=== PATIENT | male | born 1945 | race Caucasian/White ===

== ENCOUNTER 2017-04-05 05:58 | Inpatient (IN) | payer OTHER ==
[2017-04-05] VITALS (26 sets, daily range): BP systolic 97–139; BP diastolic 54–75; PULSE 55–64; RESP 12–22; TEMP 97.8; Ht 188 cm; Wt 74.0 kg
[~2017-04-05] VITALS: Ht 188 cm; Wt 74.0 kg
[2017-04-05] MEDS ORDERED: ACETAMINOPHEN 325 MG TAB PO ONE (06:30)
--- NOTE | 2017-04-05 07:36 | RADRPT ---
PROCEDURE: XR bilateral elbows CLINICAL INDICATION: Bilateral elbow pain TECHNIQUE: 3 views of the right elbow and 3 views of the left elbow performed. COMPARISON: None. FINDINGS: Right elbow: There is no acute fracture. Alignment is normal. Joint spaces are preserved. There is no significant joint effusion. There is mild posterior soft tissue swelling over the olecr anon. Left elbow: There is no acute fracture. Alignment is normal. Joint spaces are preserved. There is no significant joint effusion. There is mild posterior soft tissue swelling over the olecr anon. IMPRESSION: 1. No radiographic evidence of acute osseous abnormality or joint effusion of either elbow. 2. Both elbows demonstrate mild posterior soft tissue swelling of the olecranon. RPTAT: UU .Kumar Jacob MD, Date Time Electronically viewed and signed by .Kumar Jacob MD, on 04/05/2017 07:36 .K/
--- NOTE | 2017-04-05 07:38 | RADRPT ---
PROCEDURE: XR left Hip. CLINICAL INDICATION: Left hip pain TECHNIQUE: AP and frog lateral views of the left hip were performed. COMPARISON: None. FINDINGS: There is no radiographic evidence of acute fracture. There is severe left hip osteoarthrosis with n ear bone on bone articulation and severe joint space loss superiorly along with small degenerative s ubchondral cyst in the acetabular roof and marginal osteophyte formation. There are vascular calcif ications. IMPRESSION: 1. No radiographic evidence of acute osseous abnormality. 2. Severe left hip osteoarthrosis as above. RPTAT: UU .Kumar Jacob MD, MD Date Time Electronically viewed and signed by .Kumar Jacob MD, on 04/05/2017 07:37 .K/
--- NOTE | 2017-04-05 07:39 | RADRPT ---
PROCEDURE: CT Brain without contrast. CLINICAL INDICATION: fall TECHNIQUE: A CT of the brain was performed on a GE Ungallipeed 64-slice CT scanner utilizing axial imaging from the skull base through the vertex without IV contrast. Multiplanar reformatted images were made. Images were reviewed on a PACS workstation. The CTDIvol is 42.3 mGy and the DLP is 900. 28 mGycm. COMPARISON: None FINDINGS: In the right anterior temporal pole region, there is a crescentic extra-axial hyperdensity measuring approximate 3 mm in thickness consistent with a small right anterior temporal subdural hematoma or epidural hematoma. There is no midline shift or significant mass effect. There is moderate diffuse cerebral volume loss, likely age-related. Subtle low attenuation in the bilateral periventricular s ubcortical cerebral white matter is nonspecific, but most likely represents sequelae of chronic smal l vessel ischemic white matter disease. There reynolds white matter differentiation appears well-preserv ed. There is calcification along the tentorium and falx. The orbits are unremarkable. The visualized paranasal sinuses unremarkable. The mastoid air cells a re clear. There is a minimally depressed fracture of the right zygomatic arch. IMPRESSION: 1. Small right anterior temporal subdural or epidural hematoma measuring 3 mm in thickness. 2. Minimally depressed fracture of the right zygoma. 3. Above critical findings were discussed with Dr. Hutchins of [facility] ED via juan ramon ne at 07:37 on 04/05/2017. RPTAT: PP Physician Zheng Date Time Electronically viewed and signed by Physician Zheng on 04/05/2017 07:39 MARILU/
--- NOTE | 2017-04-05 07:53 | RADRPT ---
PROCEDURE: XR Chest. CLINICAL INDICATION: Shortness of breath. Headache. TECHNIQUE: Single frontal view. COMPARISON: None. FINDINGS: The lungs are clear. The heart size is normal. There is no pleural effusion. There is no pneumothorax. IMPRESSION: 1. Normal chest radiograph. RPTAT: QQ .Ramu Alfonso MD, MD Date Time Electronically viewed and signed by .Ramu Alfonso MD, MD on 04/05/2017 07:53 .R/
--- NOTE | 2017-04-05 07:58 | RADRPT ---
PROCEDURE: CT cervical spine without contrast. CLINICAL INDICATION: Trauma, fall, neck pain TECHNIQUE: CT of the cervical spine without contrast was performed on a multidetector CT scanner, w ith multiplanar reformats. One or more of the following dose reduction techniques were used: Automa alejo exposure control, adjustment in mA and / or kV according to patient size, use of iterative recon structive technique. CTDIvol = 22 mGy and DLP = 617 mGy-cm. COMPARISON: None available. FINDINGS: Generalized osteopenia. No cervical spine fracture or dislocation is identified. There is straight ening of the lordosis of the cervical spine. There is mild grade 1 anterolisthesis at C2-3 and C7-T 1, trace retrolisthesis at C3-4 and C5-6. Vertebral bodies are grossly maintained in height. Ther e are anterior atlantoaxial joint degenerative changes with soft tissue thickening posterior to the dens which may reflect degenerative pannus measuring up to 5 mm without significant central canal na rrowing, and anterior osteophytes at C3-4 through C6-7. There is severe disk space narrowing with e ndplate degenerative changes at C3-4 through C6-7. C2-3: There is a posterior disk/osteophyte and ligamentum flavum hypertrophy. There is mild central canal stenosis. There is facet arthropathy with mild left foraminal narrowing. C3-4: There is a posterior disk/osteophyte with mild to moderate central canal stenosis. There are uncovertebral osteophytes and facet arthropathy with moderate to severe right and severe left forami nal narrowing. C4-5: There is a posterior disk/osteophyte with mild central canal stenosis. There are uncovertebra l osteophytes and facet arthropathy with mild right foraminal narrowing. C5-6: There is a posterior disk/osteophyte without central canal stenosis identified. There are unc overtebral osteophytes and facet arthropathy with mild left foraminal narrowing. C6-7: There is a posterior disk/osteophyte without central canal stenosis identified. There are un covertebral osteophytes and facet arthropathy without foraminal narrowing identified. C7-T1: No disk bulge or herniation is seen. There is facet arthropathy. There is no central canal stenosis or foraminal narrowing. IMPRESSION: 1. No cervical spine fracture/dislocation identified. 2. Advanced cervical spondylosis/degenerative enthesopathy, with grade 1 anterolisthesis at C2-3, C 7-T1, trace retrolisthesis at C3-4, C5-6. 3. Mild to moderate central canal stenosis at C3-4, mild central canal stenosis and C2-3 and C4-5. 4. Multilevel foraminal narrowing detailed above. 5. Osteopenia. RPTAT: VV .Sebastián Acuna MD, Date Time Electronically viewed and signed by .Sebastián Acuna MD, on 04/05/2017 07:58 .O/
[2017-04-05] MEDS ORDERED: CARB100T2 PO (08:51)
[2017-04-05] MEDS ORDERED: HALO10TA PO (08:52)
[2017-04-05] MEDS ORDERED: FER325 PO (08:53)
[2017-04-05] MEDS ORDERED: QUET100T PO (08:54)
[2017-04-05] MEDS ORDERED: DOCU-144 PO (08:55)
[2017-04-05] MEDS ORDERED: QUET50TA16 PO (08:55)
[2017-04-05] MEDS ORDERED: TIOT18CA INHALATION (08:55)
[2017-04-05 09:04] LABS: BASOPHILS % 0.2 % (0.0-2.0); HEMATOCRIT 38.7 % (42.0-52.0); HEMOGLOBIN 13.2 g/dl (14.0-18.0); LYMPHOCYTES # 0.7 10^3/ul (0.8-2.9); LYMPHOCYTES % 5.4 % (15.0-51.0); MEAN CORPUSCULAR HEMOGLOBIN 29.7 pg (29.0-33.0); MEAN CORPUSCULAR HGB CONC 34.1 g/dl (32.0-37.0); MEAN CORPUSCULAR VOLUME 87.2 fl (82.0-101.0); MEAN PLATELET VOLUME 8.9 fl (7.4-10.4); MONOCYTE # 1.2 10^3/ul (0.3-0.9); MONOCYTES % 9.5 % (0.0-11.0); NEUTROPHIL # 10.2 10^3/ul (1.6-7.5); NEUTROPHILS % 84.6 % (39.0-77.0); PLATELET COUNT 347 10^3/UL (140-415); RED BLOOD COUNT 4.44 10^6/ul (4.70-6.10); RED CELL DISTRIBUTION WIDTH 13.3 % (11.5-14.5); WHITE BLOOD COUNT 12.1 10^3/ul (4.8-10.8)
--- NOTE | 2017-04-05 09:14 | ERA ---
ER Documentation Chief Complaint Date/Time DATE: 04/05/17 TIME: 09:10 Chief Complaint LEO [id number],from assisted living,ambulates w/ walker,weakness,rt elbow pain HPI Patient is a 71-year-old male with dementia who presents after a fall. Please note the history and physical exam as the patient was brought in with dementia. He fell and hit the back of his head while he was then assisted living facility. He has right elbow pain as well. He was being assisted to the bathroom by a person who works at the facility. He is not on blood thinning medications. Upon review of old medical records this is the patient's first visit to the emergency department. ROS All systems reviewed and are negative except as per history of present illness. Medications Home Meds Reported Medications Tiotropium [place]* (Spiriva*) 18 Mcg Cap.w.dev, 1 CAP INHALATION DAILY, #30 CAP 04/05/17 Docusate Sodium* (Colace*) 100 Mg Capsule, 100 MG PO BID, #60 CAP 04/05/17 Quetiapine Fumarate* (Seroquel*) 50 Mg Tablet, 50 MG PO QAM, TAB 04/05/17 Quetiapine Fumarate* (Seroquel*) 100 Mg Tablet, 100 MG PO QHS, #30 TAB 04/05/17 Ferrous Sulfate* (Ferrous Sulfate*) 325 Mg Tabec, 325 MG PO MONWEDFRI, TAB 04/05/17 Haloperidol* (Haloperidol*) 10 Mg Tablet, 5 MG PO Q6 Y for AGITATION/ANXIETY, TAB 04/05/17 Carbamazepine* (Carbamazepine*) 100 Mg Tab.chew, 300 MG PO BID, #60 TAB.CHEW 04/05/17 Allergies Allergies: Coded Allergies: No Known Allergy (Unverified , 04/05/17) PMhx/Soc Medical and Surgical Hx: Unable to obtain History of Surgery: Yes (PT STATES APPENDIX AGE 8) Hx Neurological Disorder: Yes (PT CURRENTLY EXHIBITS SUB/EPIDURAL HEMATOMA) Hx Respiratory Disorders: No Hx Cardiac Disorders: No Hx Psychiatric Problems: Yes (PT RX SEROQUEL AND HALDOL) Hx Miscellaneous Medical Probl: No Hx Alcohol Use: Yes ("HAS NOT HAD A DRINK IN YEARS") Hx Substance Use: No Hx Tobacco Use: Yes ("QUIT YEARS AGO") Smoking Status: Former smoker FmHx Unable to obtain Physical Exam Vitals Vital Signs Date Time Temp Pulse Resp B/P Pulse Ox O2 Delivery O2 Flow Rate FiO2 04/05/17 06:30 97.8 64 16 114/72 98 Room Air 04/05/17 06:02 97.6 86 18 146/73 98 Physical Exam Const: No acute distress Head: Bruising Eyes: Normal Conjunctiva ENT: Normal External Ears, Nose and Mouth. Neck: Full range of motion..~ No meningismus. Resp: Clear to auscultation bilaterally Cardio: Regular rate and rhythm, no murmurs Abd: Soft, non tender, non distended. Normal bowel sounds Skin: Bruising of the right elbow and skull Back: No midline or flank tenderness Ext: Pain with range of motion of the bilateral elbows Neur: Awake but demented at baseline Result Diagram: 04/05/17 0850 Results 24 hrs Laboratory Tests Test 04/05/17 08:50 White Blood Count 12.110^3/ul Red Blood Count 4.4410^6/ul Hemoglobin 13.2g/dl Hematocrit 38.7% Mean Corpuscular Volume 87.2fl Mean Corpuscular Hemoglobin 29.7pg Mean Corpuscular Hemoglobin Concent 34.1g/dl Red Cell Distribution Width 13.3% Platelet Count 08036^3/UL Mean Platelet Volume 8.9fl Neutrophils % 84.6% Lymphocytes % 5.4% Monocytes % 9.5% Eosinophils % 0.0% Basophils % 0.2% Nucleated Red Blood Cells % 0.0/100WBC Neutrophils # 10.210^3/ul Lymphocytes # 0.710^3/ul Monocytes # 1.210^3/ul Eosinophils # 0.010^3/ul Basophils # 0.010^3/ul Nucleated Red Blood Cells # 0.010^3/ul Current Medications Medications (Trade) Dose Ordered Sig/Janis Route PRN Reason Start Time Stop Time Status Last Admin Dose Admin Acetaminophen (Tylenol Tab) 650 mg ONCE ONCE PO 04/05/17 06:30 04/05/17 06:31 DC 04/05/17 07:24 Procedures/MDM CT brain shows 3 mm subdural versus epidural hematoma to the right side. CT cervical spine negative for fracture per radiology. Bilateral elbow x-ray negative per radiology. X-ray left hip negative for fracture per radiology. EKG read by me: Rate/Rhythm: Regular rate and rhythm at a normal rate Intervals: Normal Impression: No evidence of ischemia or arrhythmia Chest x-ray pending at this time. Patient is a 71-year-old male with dementia who presents with a fall. He has a 3 mm subdural hematoma. I spoke with Dr. Rogers who is the neurosurgeon concrete bucket loader. Dr. Olson will see the patient and recommends a repeat CT scan of the brain within 6 hours. I spoke with Dr. Briscoe from the panel team who will admit the patient to the ICU. The patient has [employer] insurance and therefore will be admitted to the panel team. The patient has laboratory studies pending at this time. Critical Care: Time: 35 minutes excluding all billable procedures. Treatments/Evaluations: Close monitoring and treatment of unstable vital signs, cardiorespiratory, and neurologic status, while maintaining tight balance of fluid, respiratory, and cardiac interventions. Departure Diagnosis: Primary Impression: SDH (subdural hematoma) Additional Impression: Fall Qualified Code: W19.XXXA - Fall, initial encounter Condition: Critical CORKY HAGER MD Apr 05, 2017 09:14
[2017-04-05 09:33] LABS: INR 0.98
[2017-04-05 09:34] LABS: CALCIUM 9.6 mg/dl (8.4-10.2); CREATININE 1.16 mg/dl (0.61-1.24); PARTIAL THROMBOPLASTIN TIME 25.9 Sec (25.0-35.0); POTASSIUM 4.5 mmol/L (3.5-5.1)
[2017-04-05 09:48] LABS: TROPONIN-I 0.46 ng/ml (0.00-0.12)
[2017-04-05] MEDS ORDERED: ONDANSETRON 4 MG INJ IV PRN (10:00)
[2017-04-05] MEDS ORDERED: DOCUSATE SODIUM 100 MG CAP PO PRN (10:00)
[2017-04-05] MEDS ORDERED: morphine 2 MG INJ IV PRN (10:00)
[2017-04-05] MEDS ORDERED: ACETAMINOPHEN 650MG/20.3ML CUP PO PRN (10:00)
[2017-04-05] MEDS ORDERED: ALBUTEROL/IPRATROPIUM (NEB) 3 ML AMP NEB PRN (10:00)
[2017-04-05] MEDS ORDERED: BISACODYL (EC) 5 MG TAB PO PRN (10:00)
[2017-04-05] MEDS ORDERED: ACETAMINOPHEN 650 MG SUPP PR PRN (10:00)
[2017-04-05 10:20] LABS: AADO2 Arterial 24.5 mmHg (7.0-24.0); Allen Test ACCEPTAB; Arterial Base Excess -0.5 mmol/L (-3.0-3); Arterial COHb 0.3 % (0.0-3.0); Arterial Fraction of Oxyhgb 95.4 % (93.0-99.0); Arterial HCO3 23.1 mmol/L (22.0-26.0); Arterial MetHb 0.4 % (0.0-1.5); MODE ROOM AIR
[2017-04-05] MEDS ORDERED: hydrALAzine 20 MG INJ IV PRN (10:30)
[2017-04-05] MEDS: SOD CHLORIDE 0.9% 1,000 ML IV SCH ×2 (11:26→23:56)
--- NOTE | 2017-04-05 11:35 | HP ---
Date/Time of Note Date/Time of Note DATE: 04/05/17 TIME: 11:35 Assessment/Plan VTE Prophylaxis VTE Prophylaxis Intervention: contraindicated (SDH), SCD's Assessment/Plan Assessment/Plan This is a 71-year-old male with a known history of dementia, who was brought by EMS from assisted living place following mechanical fall, hitting on head. 1. Mechanical fall with subdural hemorrhage on CT findings. GCS 14. 04/05/2017. CT head, noncontrast. Small right anterior temporal subdural or epidural hematoma measuring 3 mm in thickness. Minimally depressed fracture of the right zygoma. -Admit to ICU, neurosurgery consult has been called from the emergency room. -Neurochecks every hour. -Keppra for seizure precaution. -We will repeat CT within 6 hours to evaluate for resolution of hemorrhage per neurosurgery. 2.Elevated troponin. Rule out ACS. -Patient has definite contraindication for anticoagulation secondary to SDH. -Cardiology consult for further management. -Obtain 12-lead EKG, echocardiogram. -Antihypertensive prn. 3. Leukocytosis, likely reactive. Will monitor. 4. Dementia. -Resume home medications. DVT prophylaxis: Pharmacological agents are contraindicated at this time. Provide SCDs. PUD prophylaxis: Pepcid. Plan: Patient will be monitored in the ICU with regular neurovascular checks. Patient will be seen by neurosurgery and cardiology service. Patient will be kept n.p.o. until neurosurgery evaluate patient. We will follow up on repeat CT findings. We will also obtain fasting lipid panel, A1c, TSH in the morning. Rest of the management depend on clinical course, further studies and input from hr business partner consultant. Approximately 60 minutes was spent on this history and physical. Case discussed with Dr. Luis Felipe WRIGHT/LANDEN Admit Date/Time Admit Date/Time Apr 05, 2017 at 08:17 Hx of Present Illness This is a 71-year-old male with a past medical history of dementia, appendectomy , who was brought to the emergency room from assisted living facility after fell and hit his head while ambulating with walker. Unfortunately, there is no patient is unable to provide much history due to his dementia status. However, it appears that patient is not on any blood thinners. Patient had a CT brain without contrast which showed small right anterior temporal subdural or epidural hematoma measuring 3 mm in thickness, Minimally depressed fracture of the right zygoma. Initial labs showed elevated troponin 0.460, CK 9151, WBC 12,100, hemoglobin 13.2, hematocrit 38.7. Otherwise initial labs unremarkable. A 12-lead EKG showed normal sinus rhythm without any evidence of ischemia or arrhythmia. Chest x-ray was negative for any acute cardiopulmonary disease. Patient also had negative elbow and hip x-ray. Vital signs: temperature 97.6 pulse rate 86, respiratory rate 18 blood pressure 146/73 , oxygen saturation 98% on room air. Patient was given Tylenol 650 mg in the emergency room. A neurosurgery consult was called from the emergency room and a clinical decision was made to admit in the ICU for further evaluation. ROS Patient has a baseline demented status. Therefore review of system was limited. Please see HPI. PMH/Family/Social Past Medical History See HPI Past Surgical History See HPI Social History Unable to obtain. Smoking Status: Former smoker Exam/Review of Systems Vital Signs Vitals Vital Signs Date Time Temp Pulse Resp B/P Pulse Ox O2 Delivery O2 Flow Rate FiO2 04/05/17 09:30 64 04/05/17 09:11 97.8 20 124/72 99 Room Air Exam Exam General: Awake, not in any acute distress . HEENT: Ecchymosis on right forehead, chin area. Normocephalic, Atraumatic, No laceration or hematoma; Eyes: PEERL, Conjunctiva clear, Anicteric sclera Neck: Supple without any lymphadenopathy, nontender, no JVD, no carotid bruits, trachea midline, no thyromegaly Cardiac: S1, S2 auscultated, regular rhythm and rate, no mumurs or gallop Pulmonary: Normal respiratory effort. Chest clear to auscultation bilaterally, no adventitious breath sounds GI: Abdomen normal to inspection. Soft, non tender, non- distended, no masses, no rebound tenderness or guarding. Bowel sounds active on all four quadrants Genitourinary: Deferred Extremities: No cyanosis, clubbing, or edema. Pulses [2+] bilaterally. Full ROM on all four extremities. No focal weakness appreciated. Neurologic: Dementia +. Confused on and off. Awake and follows commands. Disoriented to time, place and situation. Skin: Clean,dry, and intact. No ecchymosis, no rashes, or lesions Labs Result Diagram: 04/05/17 0850 04/05/17 0850 Medications Medications Current Medications Sodium Chloride (NS) 1,000 ml @ 75 mls/hr [id number] IV Last administered on 04/05t 11:26; Admin Dose 75 MLS/HR; Start 04/05/17 at 09:48 Ondansetron HCl (Zofran Inj) 4 mg Q6H PRN IV NAUSEA AND/OR VOMITING; Start at 10:00 Acetaminophen (Tylenol Liquid) 650 mg Q6H PRN PO PAIN LEVEL 1-3 OR FEVER; Start 04/05/17 at 10:00 Acetaminophen (Tylenol Supp) 650 mg Q4H PRN WI PAIN LEVEL 1-3 OR FEVER; Start 04/05/17 at 10:00 Morphine Sulfate (morphine) 2 mg Q4H PRN IV PAIN LEVEL 7-10; Start 04/05/17 at 10:00 Docusate Sodium (Colace) 100 mg Q12H PRN PO CONSTIPATION; Start 04/05/17 at 10: 00 Bisacodyl (Dulcolax) 5 mg DAILY PRN PO CONSTIPATION; Start 04/05/17 at 10:00 Famotidine 20 mg 20 mg Q12 IV ; Start 04/05/17 at 21:00 Levetiracetam (Keppra 500 Mg/ 100ml (Pmx)) 100 ml @ 400 mls/hr Q12 IVPB ; Start 04/05/17 at 11:00 Hydralazine HCl (Apresoline) 10 mg Q6H PRN IV SBP>160; Start 04/05/17 at 10:30 BRIAN CARD NP Apr 05, 2017 11:35
[2017-04-05] MEDS: LEVETIRACETAM 500 MG (PMX) 100 ML IVPB SCH ×2 (11:36→20:21)
[2017-04-05 12:29] LABS: ADD UMIC YES; UR ASCORBIC ACID NEGATIVE (NEGATIVE); UR BILIRUBIN (Dip) NEGATIVE (NEGATIVE); UR BLOOD (Dip) 1+ mg/dL (NEGATIVE); UR CLARITY CLEAR (CLEAR); UR COLOR YELLOW (YELLOW); UR GLUCOSE (Dip) NEGATIVE (NEGATIVE); UR KETONES (Dip) NEGATIVE (NEGATIVE); UR LEUKOCYTE ESTERASE (Dip) NEGATIVE Leu/ul (NEGATIVE); UR NITRITE (Dip) NEGATIVE (NEGATIVE); UR RBC 4 /HPF (0-5); UR SPECIFIC GRAVITY (Dip) 1.017 (1.003-1.030); UR TOTAL PROTEIN (Dip) NEGATIVE (NEGATIVE); UR UROBILINOGEN (Dip) NEGATIVE (NEGATIVE)
[2017-04-05 13:02] LABS: TROPONIN-I 0.466 ng/ml (0.00-0.12)
--- NOTE | 2017-04-05 14:21 | RADRPT ---
PROCEDURE: Noncontrast CT Head. CLINICAL INDICATION: Trauma. Subdural hematoma. TECHNIQUE: Noncontrast CT of the head was obtained. The administered radiation dose was CTDI vol = 44.03 mGy, DLP = 630.20 mGy-cm. One or more of the following dose reduction techniques were used: Au tomated exposure control, Adjustment of the mA and/or kV according to patient size, or Use of iterat ilsa reconstruction technique. COMPARISON: Noncontrast CT of the head from April 05, 2017 at 07:00 a.m. FINDINGS: There is moderate generalized cerebral volume loss. There is mild cerebellar volume loss. There is mild to moderate periventricular hypoattenuation suggesting chronic microvascular ischemic changes. There are mild vascular calcifications within the intracranial carotid arteries. There is no loss of reynolds-white differentiation to suggest acute territorial infarction. No definite intracranial hemorrhage is identified. There is no definite extra-axial hemorrhage with in the right temporal region. There is no mass effect. No midline shift is identified. The orbits are within normal limits. The paranasal sinuses are well aerated. No destructive osseous lesion is identified. Previous noted mildly displaced right zygomatic arch fr acture is not imaged. IMPRESSION: 1. No evidence of intracranial hemorrhage. 2. Moderate cerebral and mild cerebellar volume loss. 3. Mild to moderate chronic microvascular ischemic changes. 4. Previous noted mildly displaced right zygomatic arch fracture is not imaged. Further findings as detailed above. RPTAT: PP .Good Alexander MD, MD Date Time Electronically viewed and signed by .Good Alexander MD, on 04/05/2017 14:21 .F/
--- NOTE | 2017-04-05 15:07 | RADRPT ---
Echocardiogram Report Patient Name: VIDAL ROA Gender: Male Date: 1945 Study Date: 05-Apr-2017 Revenue Cycle Analyst: Mateus Coreas RDCS Location: 118 Ref. Physician: BRIAN CARD Quality: Adequate Procedures: Transthoracic echocardiogram with complete 2D, M-Mode, and doppler examination. Indications: cardiac risk stratification. 2D/M Mode Doppler Measurement Value Normal Ranges Measurement Value Normal Ranges LVIDd 2D 4.5 3.5 - 5.6 cm AV Peak You 0.9 m/sec LVIDs 2D 2.6 2.1 - 4.1 cm AV Peak PG 3.3 mmHg LVPWd 2D 1.1 0.6 - 1.1 cm LVOT Peak You 0.9 m/sec IVSd 2D 1.0 0.6 - 1.1 cm LVOT Peak PG 3.3 mmHg AoR Diam 2D 3.2 2.0 - 3.7 cm MV E Peak You 0.7 m/sec EDV 2D 94.5 cm3 MV A Peak You 0.9 m/sec ESV 2D 18.4 cm3 MV E/A 0.8 LA Dimen 2D 3.8 2.3 - 4.0 cm MV Decel Time 233 msec MV Decel [place] 3 MV E/A 0.8 TR Peak You 1.7 m/sec TR Peak PG 10.9 mmHg RVSP 14.0 mmHg Findings Left Ventricle: Normal left ventricular systolic function. Normal left ventricular cavity size. Normal left ventricular wall thickness. Ejection fraction is visually estimated at 65 %. Tissue Doppler/Mitral Doppler indices are consistent with impaired relaxation (Stage I diastolic dysfunction). Right Ventricle: Normal right ventricular size. Normal right ventricular systolic function. Left Atrium: The left atrium is normal in size. Right Atrium: The right atrium is normal in size. Mitral Valve: Mitral valve leaflets appear mildly thickened. Mild mitral annular calcification. Mild mitral valve regurgitation. Aortic Valve: Normal appearance of the aortic valve. No significant aortic stenosis or insufficiency. Tricuspid Valve: Normal appearance of the tricuspid valve. Estimated peak PA systolic pressure 14 mmHg. There is trace tricuspid regurgitation. Pulmonic Valve: Normal pulmonic valve appearance. Pericardium: Normal pericardium with no significant pericardial effusion. Aorta: Normal aortic root. IVC: Normal size and normal respiratory collapse consistent with normal right atrial pressure. Conclusions 1.Normal left ventricular systolic function. Normal left ventricular cavity size. Normal left ventricular wall thickness. Ejection fraction is visually estimated at 65 %. Tissue Doppler/Mitral Doppler indices are consistent with impaired relaxation (Stage I diastolic dysfunction). 2.Normal right ventricular size. Normal right ventricular systolic function. 3.The left atrium is normal in size. 4.The right atrium is normal in size. 5.Mild mitral valve regurgitation. 6.No significant valvular stenosis or regurgitation seen of remaining visualized valves. 7.Normal pericardium with no significant pericardial effusion. Electronically Signed By: Jax Chauhan 05-Apr-2017 15:05:53 -0700 Patient Name: VIDAL ROA Study Date: 05-Apr-2017 [id number]
--- NOTE | 2017-04-05 16:20 | CONS ---
Date/Time of Note Date/Time of Note DATE: 04/05/17 TIME: 16:16 Assessment/Plan Assessment/Plan Additional Assessment/Plan Status post mechanical fall with head trauma Elevated troponin Preserved ejection fraction Psychiatric disorder -Patient denies any chest pain or shortness of breath, ECG with no significant ischemic abnormalities, 2 sets of troponins remained static and mildly elevated. Given recent fall and concern for possible intracranial hemorrhage, aspirin will be contraindicated, patient bradycardic no beta-veronica at the current time. Would start statin therapy if no contraindication. Echocardiogram with preserved ejection fraction. Consultation Date/Type/Reason Admit Date/Time Apr 05, 2017 at 08:17 Type of Consultation: cv Reason for Consultation Elevated troponin Hx of Present Illness This is a 71-year-old male transferred from assisted living facility secondary to mechanical fall and head trauma. Patient tells me that he slipped but does not remember the incident. Doing laboratory studies, patient elevated troponin for this reason cardiology consultation was requested. Patient denies any shortness of breath, chest pain, palpitations or dizziness. Denies any cardiac history. Denies any abdominal pain currently, nausea or vomiting. 12 point review of systems was performed with all pertinent positives and negatives mentioned above and all else is negative Past Medical History Dementia Psychiatric disorder Likely COPD Family History Significant Family History: no pertinent family hx Social History Smoking Status: Former smoker Other Social History From assisted living Exam/Review of Systems Vital Signs Vitals Vital Signs Date Time Temp Pulse Resp B/P Pulse Ox O2 Delivery O2 Flow Rate FiO2 04/05/17 13:30 60 16 116/64 99 Room Air 04/05/17 12:00 98.3 Exam Constitutional: alert (To person and place, no apparent distress, confused at times and requires redirection in) Head: other (Ecchymosis noted on scalp) Respiratory: other (Coarse breath sounds bilaterally, no wheezing) Cardiovascular: other (S1-S2 heard), regular rate and rhythm Gastrointestinal: bowel sounds, non-tender, soft Extremities: other (No edema) Results Result Diagram: 04/05/17 0850 04/05/17 0850 Results 24 hrs Laboratory Tests Test 04/05/17 08:50 04/05/17 09:48 04/05/17 10:45 04/05/17 12:00 White Blood Count 12.1 H Red Blood Count 4.44 L Hemoglobin 13.2 L Hematocrit 38.7 L Mean Corpuscular Volume 87.2 Mean Corpuscular Hemoglobin 29.7 Mean Corpuscular Hemoglobin Concent 34.1 Red Cell Distribution Width 13.3 Platelet Count 347 Mean Platelet Volume 8.9 Neutrophils % 84.6 H Lymphocytes % 5.4 L Monocytes % 9.5 Eosinophils % 0.0 Basophils % 0.2 Nucleated Red Blood Cells % 0.0 Neutrophils # 10.2 H Lymphocytes # 0.7 L Monocytes # 1.2 H Eosinophils # 0.0 Basophils # 0.0 Nucleated Red Blood Cells # 0.0 Prothrombin Time 13.0 Prothrombin Time Ratio 1.0 INR International Normalized Ratio 0.98 Activated Partial Thromboplast Time 25.9 Sodium Level 142 Potassium Level 4.5 Chloride Level 100 Carbon Dioxide Level 30 Anion Gap 17 H Blood Urea Nitrogen 15 Creatinine 1.16 Glucose Level 98 Uric Acid 7.0 Calcium Level 9.6 Troponin I 0.460 *H Blood Gas Specimen Source Blood arterial Arterial Blood Date Drawn 04/05/2017 10:15:04 AM Arterial Blood pH (Temp corrected) 7.441 Arterial Blood pCO2 (Temp correct) 34.7 L Arterial Blood pO2 (Temp corrected) 83.7 Arterial Blood HCO3 23.1 Arterial Blood Base Excess -0.5 Arterial Blood Oxygen Saturation 96.1 Ayden Test ACCEPTAB Arterial Blood Gas Puncture Site Right Radial Arterial Blood Carboxyhemoglobin 0.3 Arterial Blood Methemoglobin 0.4 Blood Gas A-a O2 Differential 24.5 H Oxyhemoglobin Percent 95.4 Total Hemoglobin 14.0 Blood Gas Temperature 37.0 Blood Gas Modality ROOM AIR FiO2 21.0 Blood Gas Notified Whom Blood Gas Notified Time 04/05/2017 10:20:31 AM Urine Color YELLOW Urine Clarity CLEAR Urine pH 6.0 Urine Specific [place] 1.017 Urine Ketones NEGATIVE Urine Nitrite NEGATIVE Urine Bilirubin NEGATIVE Urine Urobilinogen NEGATIVE Urine Leukocyte Esterase NEGATIVE Urine Microscopic RBC 4 Urine Microscopic WBC 1 Urine Hemoglobin 1+ H Urine Glucose NEGATIVE Urine Total Protein NEGATIVE Bedside Glucose 92 Test 04/05/17 12:10 Creatine Kinase 9151 H Creatine Kinase Index 0.6 Creatinine Kinase MB (Mass) 56.00 H Troponin I 0.466 *H Medications Medications Current Medications Sodium Chloride (NS) 1,000 ml @ 75 mls/hr [id number] IV Last administered on 04/05t 11:26; Admin Dose 75 MLS/HR; Start 04/05/17 at 09:48 Ondansetron HCl (Zofran Inj) 4 mg Q6H PRN IV NAUSEA AND/OR VOMITING; Start at 10:00 Acetaminophen (Tylenol Liquid) 650 mg Q6H PRN PO PAIN LEVEL 1-3 OR FEVER; Start 04/05/17 at 10:00 Acetaminophen (Tylenol Supp) 650 mg Q4H PRN [place] PAIN LEVEL 1-3 OR FEVER; Start 04/05/17 at 10:00 Morphine Sulfate (morphine) 2 mg Q4H PRN IV PAIN LEVEL 7-10; Start 04/05/17 at 10:00 Docusate Sodium (Colace) 100 mg Q12H PRN PO CONSTIPATION; Start 04/05/17 at 10: 00 Bisacodyl (Dulcolax) 5 mg DAILY PRN PO CONSTIPATION; Start 04/05/17 at 10:00 Famotidine 20 mg 20 mg Q12 IV ; Start 04/05/17 at 21:00 Levetiracetam (Keppra 500 Mg/ 100ml (Pmx)) 100 ml @ 400 mls/hr Q12 IVPB Last administered on 04/05/17t 11:36; Admin Dose 400 MLS/HR; Start 04/05/17 at 11:00 Hydralazine HCl (Apresoline) 10 mg Q6H PRN IV SBP>160; Start 04/05/17 at 10:30 Procedures Procedures ECG demonstrates sinus rhythm at 61 bpm, septal Q waves, QRS 84 ms, no significant ischemic STT wave abnormalities Jax Chauhan DO Apr 05, 2017 16:20
[2017-04-05 19:51] LABS: TROPONIN-I 0.361 ng/ml (0.00-0.12)
[2017-04-05] MEDS: FAMOTIDINE 20 MG INJ IV SCH (20:21)
[2017-04-06] VITALS (21 sets, daily range): BP systolic 90–126; BP diastolic 53–71; PULSE 45–58; RESP 12–20
[2017-04-06 06:02] LABS: BASOPHILS % 0.7 % (0.0-2.0); EOSINOPHILS # 0.1 10^3/ul (0.0-0.5); EOSINOPHILS % 1.7 % (0.0-7.0); HEMATOCRIT 36.9 % (42.0-52.0); HEMOGLOBIN 12.2 g/dl (14.0-18.0); LYMPHOCYTES # 1.2 10^3/ul (0.8-2.9); LYMPHOCYTES % 20.2 % (15.0-51.0); MEAN CORPUSCULAR HEMOGLOBIN 29.3 pg (29.0-33.0); MEAN CORPUSCULAR HGB CONC 33.1 g/dl (32.0-37.0); MEAN CORPUSCULAR VOLUME 88.7 fl (82.0-101.0); MEAN PLATELET VOLUME 9.1 fl (7.4-10.4); MONOCYTE # 0.6 10^3/ul (0.3-0.9); MONOCYTES % 11.1 % (0.0-11.0); NEUTROPHIL # 3.8 10^3/ul (1.6-7.5); NEUTROPHILS % 66.1 % (39.0-77.0); PLATELET COUNT 323 10^3/UL (140-415); RED BLOOD COUNT 4.16 10^6/ul (4.70-6.10); RED CELL DISTRIBUTION WIDTH 14.1 % (11.5-14.5); WHITE BLOOD COUNT 5.8 10^3/ul (4.8-10.8)
[2017-04-06 06:56] LABS: ALBUMIN 3.6 g/dl (3.3-4.9); ALBUMIN/GLOBULIN RATIO 1.2; BILIRUBIN,INDIRECT 0.2 mg/dl (0-1.1); BILIRUBIN,TOTAL 0.2 mg/dl (0.2-1.3); CALCIUM 8.6 mg/dl (8.4-10.2); CHOL/HDL RATIO 3.4 RATIO; CREATININE 0.84 mg/dl (0.61-1.24); MAGNESIUM 2.1 mg/dl (1.7-2.5); PHOSPHORUS 3.4 mg/dl (2.5-4.9); POTASSIUM 3.9 mmol/L (3.5-5.1); TOTAL PROTEIN 6.6 g/dl (6.1-8.1)
[2017-04-06 07:55] LABS: THYROID STIMULATING HORMONE 1.47 MIU/L (0.465-4.680)
--- NOTE | 2017-04-06 08:02 | RADRPT ---
Vent Rate: 61 bpm RR Interval: 0 msec [place] Interval: 206 msec QRS Duration: 84 msec QT Interval: 432 msec QTC Interval: 434 msec P-R-T [place]: 68 - 69 - 66 degrees Normal sinus rhythm Septal infarct , age undetermined Abnormal ECG Electronically Signed By: Lio Posada [id number]
--- NOTE | 2017-04-06 08:38 | PN ---
Date/Time of Note Date/Time of Note DATE: 04/06/17 TIME: 08:28 Assessment/Plan VTE Prophylaxis VTE Prophylaxis Intervention: SCD's Lines/Catheters IV Catheter Type (from [facility]): Peripheral IV Urinary Cath still in place: Yes Reason Cath still needed: other (indicate) Assessment/Plan Chief Complaint/Hosp Course 1. Mechanical fall with subdural hemorrhage on CT findings. GCS 14. 04/05/2017. CT head, noncontrast. Small right anterior temporal subdural or epidural hematoma measuring 3 mm in thickness. Minimally depressed fracture of the right zygoma. 04/06/17. repeat CT with resolution of hemorrhage. -Continue Neurochecks. We will stop Keppra. -F/u with NS recommendation. 2.Elevated troponin. Rule out ACS.Trop trending down. -Cards on board. Not a candidate for BB secondary to bradycardia. -?Start low dose aspirin to prevent CV events if ok with cards since no further hemorrhage on CT 3. Leukocytosis, likely reactive. Resolved. 4. Dementia. -Resume home medications. DVT prophylaxis: Pharmacological agents are contraindicated at this time. SCDs. PUD prophylaxis: Pepcid. Plan:Transfer to tele if ok with cards and neuro. If no further intervention, DC planning. Case discussed with Dr. Briscoe Problems: Subjective 24 Hr Interval Summary Free Text/Dictation No acute overnight episodes. Bradycardia lowest at 48 BPM. Exam/Review of Systems Vital Signs Vitals Vital Signs Date Time Temp Pulse Resp B/P Pulse Ox O2 Delivery O2 Flow Rate FiO2 04/06/17 08:00 98.1 53 15 109/58 99 Room Air Intake and Output 04/05/17 04/05/17 04/06/17 15:00 23:00 07:00 Intake Total 345 ml 225 ml 480 ml Output Total 670 ml 200 ml 950 ml Balance -325 ml 25 ml -470 ml Exam General: Awake, not in any acute distress . HEENT: Bruising on right forehead, chin area. Normocephalic, Atraumatic, No laceration or hematoma; Eyes: PEERL, Conjunctiva clear, Anicteric sclera Neck: Supple without any lymphadenopathy, nontender, no JVD, no carotid bruits, trachea midline, no thyromegaly Cardiac: S1, S2 auscultated, regular rhythm and rate, no mumurs or gallop Pulmonary: Normal respiratory effort. Chest clear to auscultation bilaterally, no adventitious breath sounds GI: Abdomen normal to inspection. Soft, non tender, non- distended, no masses, no rebound tenderness or guarding. Bowel sounds active on all four quadrants Genitourinary: Deferred Extremities: No cyanosis, clubbing, or edema. Pulses [2+] bilaterally. Full ROM on all four extremities. No focal weakness appreciated. Neurologic: Dementia +. Confused on and off. Awake and follows commands. Disoriented to time, place and situation. Skin: Chronic eschar wound on right second toe. otherwise, Clean,dry, and intact. No ecchymosis, no rashes, or lesions Results Result Diagram: 04/06/1752304/06/17 05 Results 24 hrs Laboratory Tests Test 04/05/17 08:50 04/05/17 09:48 04/05/17 10:45 04/05/17 12:00 White Blood Count 12.1 H Red Blood Count 4.44 L Hemoglobin 13.2 L Hematocrit 38.7 L Mean Corpuscular Volume 87.2 Mean Corpuscular Hemoglobin 29.7 Mean Corpuscular Hemoglobin Concent 34.1 Red Cell Distribution Width 13.3 Platelet Count 347 Mean Platelet Volume 8.9 Neutrophils % 84.6 H Lymphocytes % 5.4 L Monocytes % 9.5 Eosinophils % 0.0 Basophils % 0.2 Nucleated Red Blood Cells % 0.0 Neutrophils # 10.2 H Lymphocytes # 0.7 L Monocytes # 1.2 H Eosinophils # 0.0 Basophils # 0.0 Nucleated Red Blood Cells # 0.0 Prothrombin Time 13.0 Prothrombin Time Ratio 1.0 INR International Normalized Ratio 0.98 Activated Partial Thromboplast Time 25.9 Sodium Level 142 Potassium Level 4.5 Chloride Level 100 Carbon Dioxide Level 30 Anion Gap 17 H Blood Urea Nitrogen 15 Creatinine 1.16 Glucose Level 98 Uric Acid 7.0 Calcium Level 9.6 Troponin I 0.460 *H Blood Gas Specimen Source Blood arterial Arterial Blood Date Drawn 04/05/2017 10:15:04 AM Arterial Blood pH (Temp corrected) 7.441 Arterial Blood pCO2 (Temp correct) 34.7 L Arterial Blood pO2 (Temp corrected) 83.7 Arterial Blood HCO3 23.1 Arterial Blood Base Excess -0.5 Arterial Blood Oxygen Saturation 96.1 Ayden Test ACCEPTAB Arterial Blood Gas Puncture Site Right Radial Arterial Blood Carboxyhemoglobin 0.3 Arterial Blood Methemoglobin 0.4 Blood Gas A-a O2 Differential 24.5 H Oxyhemoglobin Percent 95.4 Total Hemoglobin 14.0 Blood Gas Temperature 37.0 Blood Gas Modality ROOM AIR FiO2 21.0 Blood Gas Notified Whom Blood Gas Notified Time 04/05/2017 10:20:31 AM Urine Color YELLOW Urine Clarity CLEAR Urine pH 6.0 Urine Specific [place] 1.017 Urine Ketones NEGATIVE Urine Nitrite NEGATIVE Urine Bilirubin NEGATIVE Urine Urobilinogen NEGATIVE Urine Leukocyte Esterase NEGATIVE Urine Microscopic RBC 4 Urine Microscopic WBC 1 Urine Hemoglobin 1+ H Urine Glucose NEGATIVE Urine Total Protein NEGATIVE Bedside Glucose 92 Test 04/05/17 12:10 04/05/17 18:36 04/06/17 05:24 Creatine Kinase 9151 H 50721 H Creatine Kinase Index 0.6 0.4 Creatinine Kinase MB (Mass) 56.00 H 49.00 H Troponin I 0.466 *H 0.361 *H White Blood Count 5.8 # Red Blood Count 4.16 L Hemoglobin 12.2 L Hematocrit 36.9 L Mean Corpuscular Volume 88.7 Mean Corpuscular Hemoglobin 29.3 Mean Corpuscular Hemoglobin Concent 33.1 Red Cell Distribution Width 14.1 Platelet Count 323 Mean Platelet Volume 9.1 Neutrophils % 66.1 Lymphocytes % 20.2 Monocytes % 11.1 H Eosinophils % 1.7 Basophils % 0.7 Nucleated Red Blood Cells % 0.0 Neutrophils # 3.8 Lymphocytes # 1.2 Monocytes # 0.6 Eosinophils # 0.1 Basophils # 0.0 Nucleated Red Blood Cells # 0.0 Sodium Level 142 Potassium Level 3.9 Chloride Level 103 Carbon Dioxide Level 26 Anion Gap 17 H Blood Urea Nitrogen 12 Creatinine 0.84 Glucose Level 74 Hemoglobin A1c 5.4 Calcium Level 8.6 Phosphorus Level 3.4 Magnesium Level 2.1 Total Bilirubin 0.2 Direct Bilirubin 0.00 Indirect Bilirubin 0.2 Aspartate Amino Transf (AST/SGOT) 125 H Alanine Aminotransferase (ALT/SGPT) 57 Alkaline Phosphatase 49 Total Protein 6.6 Albumin 3.6 Globulin 3.00 Albumin/Globulin Ratio 1.20 Triglycerides Level 63 Cholesterol Level 174 LDL Cholesterol, Calculated 110 HDL Cholesterol 51 Cholesterol/HDL Ratio 3.4 Thyroid Stimulating Hormone (TSH) 1.470 Medications Medications Current Medications Sodium Chloride (NS) 1,000 ml @ 75 mls/hr [id number] IV Last administered on 04/05 23:56; Admin Dose 75 MLS/HR; Start 04/05/17 at 09:48 Ondansetron HCl (Zofran Inj) 4 mg Q6H PRN IV NAUSEA AND/OR VOMITING; Start at 10:00 Acetaminophen (Tylenol Liquid) 650 mg Q6H PRN PO PAIN LEVEL 1-3 OR FEVER; Start 04/05/17 at 10:00 Acetaminophen (Tylenol Supp) 650 mg Q4H PRN [place] PAIN LEVEL 1-3 OR FEVER; Start 04/05/17 at 10:00 Morphine Sulfate (morphine) 2 mg Q4H PRN IV PAIN LEVEL 7-10; Start 04/05/17 at 10:00 Docusate Sodium (Colace) 100 mg Q12H PRN PO CONSTIPATION; Start 04/05/17 at 10: 00 Bisacodyl (Dulcolax) 5 mg DAILY PRN PO CONSTIPATION; Start 04/05/17 at 10:00 Famotidine 20 mg 20 mg Q12 IV Last administered on 04/05/17 20:21; Admin Dose 20 MG; Start 04/05/17 at 21:00 Levetiracetam (Keppra 500 Mg/ 100ml (Pmx)) 100 ml @ 400 mls/hr Q12 IVPB Last administered on 04/05/17 20:21; Admin Dose 400 MLS/HR; Start 04/05/17 at 11:00 Hydralazine HCl (Apresoline) 10 mg Q6H PRN IV SBP>160; Start 04/05/17 at 10:30 BRIAN CARD NP Apr 06, 2017 08:37
[2017-04-06] MEDS: FAMOTIDINE 20 MG INJ IV SCH ×2 (09:51→21:33)
[2017-04-06] MEDS: SOD CHLORIDE 0.9% 1,000 ML IV SCH (13:10)
--- NOTE | 2017-04-06 14:09 | CONS ---
Date/Time of Note Date/Time of Note DATE: 04/06/17 TIME: 14:07 Assessment/Plan Assessment/Plan Additional Assessment/Plan Status post mechanical fall with head trauma Elevated troponin Preserved ejection fraction Psychiatric disorder -Troponin trend has remained static and slightly decreased. Patient continues to deny chest pain or shortness of breath. No aspirin secondary to fall, no beta-veronica secondary to bradycardia. Statin therapy if no contraindication. Consultation Date/Type/Reason Admit Date/Time Apr 05, 2017 at 08:17 Initial Consult Date Type of Consultation: cv 24 HR Interval Summary Free Text/Dictation Patient seen and examined, noted to be bradycardic at times on telemetry but asymptomatic. Denies shortness of breath or dizziness Exam/Review of Systems Vital Signs Vitals Vital Signs Date Time Temp Pulse Resp B/P Pulse Ox O2 Delivery O2 Flow Rate FiO2 04/06/17 12:00 97.8 47 14 104/55 99 Room Air Intake and Output 04/05/17 04/05/17 04/06/17 15:00 23:00 07:00 Intake Total 345 ml 225 ml 555 ml Output Total 670 ml 200 ml 980 ml Balance -325 ml 25 ml -425 ml Exam Sleeping but arousable, no apparent distress Head: normocephalic Respiratory: other (Coarse breath sounds bilaterally, no wheezing) Cardiovascular: other (S1-S2 heard), regular rate and rhythm, systolic murmur Gastrointestinal: bowel sounds, non-tender, other (No guarding), soft Extremities: edema (Trace) Results Result Diagram: 04/06/17 0524 04/06/17 0524 Results 24 hrs Laboratory Tests Test 04/05/17 18:36 04/06/17 05:24 Creatine Kinase 42117 H Creatine Kinase Index 0.4 Creatinine Kinase MB (Mass) 49.00 H Troponin I 0.361 *H White Blood Count 5.8 # Red Blood Count 4.16 L Hemoglobin 12.2 L Hematocrit 36.9 L Mean Corpuscular Volume 88.7 Mean Corpuscular Hemoglobin 29.3 Mean Corpuscular Hemoglobin Concent 33.1 Red Cell Distribution Width 14.1 Platelet Count 323 Mean Platelet Volume 9.1 Neutrophils % 66.1 Lymphocytes % 20.2 Monocytes % 11.1 H Eosinophils % 1.7 Basophils % 0.7 Nucleated Red Blood Cells % 0.0 Neutrophils # 3.8 Lymphocytes # 1.2 Monocytes # 0.6 Eosinophils # 0.1 Basophils # 0.0 Nucleated Red Blood Cells # 0.0 Sodium Level 142 Potassium Level 3.9 Chloride Level 103 Carbon Dioxide Level 26 Anion Gap 17 H Blood Urea Nitrogen 12 Creatinine 0.84 Glucose Level 74 Hemoglobin A1c 5.4 Calcium Level 8.6 Phosphorus Level 3.4 Magnesium Level 2.1 Total Bilirubin 0.2 Direct Bilirubin 0.00 Indirect Bilirubin 0.2 Aspartate Amino Transf (AST/SGOT) 125 H Alanine Aminotransferase (ALT/SGPT) 57 Alkaline Phosphatase 49 Total Protein 6.6 Albumin 3.6 Globulin 3.00 Albumin/Globulin Ratio 1.20 Triglycerides Level 63 Cholesterol Level 174 LDL Cholesterol, Calculated 110 HDL Cholesterol 51 Cholesterol/HDL Ratio 3.4 Thyroid Stimulating Hormone (TSH) 1.470 Medications Medications Current Medications Sodium Chloride (NS) 1,000 ml @ 75 mls/hr [id number] IV Last administered on 04/06 13:10; Admin Dose 75 MLS/HR; Start 04/05/17 at 09:48 Ondansetron HCl (Zofran Inj) 4 mg Q6H PRN IV NAUSEA AND/OR VOMITING; Start at 10:00 Acetaminophen (Tylenol Liquid) 650 mg Q6H PRN PO PAIN LEVEL 1-3 OR FEVER; Start 04/05/17 at 10:00 Acetaminophen (Tylenol Supp) 650 mg Q4H PRN [place] PAIN LEVEL 1-3 OR FEVER; Start 04/05/17 at 10:00 Morphine Sulfate (morphine) 2 mg Q4H PRN IV PAIN LEVEL 7-10; Start 04/05/17 at 10:00 Docusate Sodium (Colace) 100 mg Q12H PRN PO CONSTIPATION; Start 04/05/17 at 10: 00 Bisacodyl (Dulcolax) 5 mg DAILY PRN PO CONSTIPATION; Start 04/05/17 at 10:00 Famotidine (Pepcid Iv) 20 mg Q12 IV Last administered on 04/06/17 09:51; Admin Dose 20 MG; Start 04/05/17 at 21:00 Hydralazine HCl (Apresoline) 10 mg Q6H PRN IV SBP>160; Start 04/05/17 at 10:30 Jax Chauhan DO Apr 06, 2017 14:09
[2017-04-06] MEDS: ATORVASTATIN 20 MG TAB PO SCH (21:38)
[2017-04-07] VITALS (15 sets, daily range): BP systolic 126–153; BP diastolic 62–70; PULSE 43–105; RESP 18–20
[2017-04-07] MEDS: SOD CHLORIDE 0.9% 1,000 ML IV SCH ×2 (01:58→17:28)
[2017-04-07 08:17] LABS: BASOPHILS % 0.5 % (0.0-2.0); EOSINOPHILS # 0.2 10^3/ul (0.0-0.5); EOSINOPHILS % 3.8 % (0.0-7.0); HEMATOCRIT 36.3 % (42.0-52.0); HEMOGLOBIN 11.9 g/dl (14.0-18.0); LYMPHOCYTES # 1.3 10^3/ul (0.8-2.9); LYMPHOCYTES % 20.4 % (15.0-51.0); MEAN CORPUSCULAR HEMOGLOBIN 29.3 pg (29.0-33.0); MEAN CORPUSCULAR HGB CONC 32.8 g/dl (32.0-37.0); MEAN CORPUSCULAR VOLUME 89.4 fl (82.0-101.0); MONOCYTE # 0.7 10^3/ul (0.3-0.9); MONOCYTES % 11.5 % (0.0-11.0); NEUTROPHILS % 63.5 % (39.0-77.0); PLATELET COUNT 307 10^3/UL (140-415); RED BLOOD COUNT 4.06 10^6/ul (4.70-6.10); RED CELL DISTRIBUTION WIDTH 13.7 % (11.5-14.5); WHITE BLOOD COUNT 6.3 10^3/ul (4.8-10.8)
[2017-04-07 09:16] LABS: TROPONIN-I 0.074 ng/ml (0.00-0.12)
[2017-04-07] MEDS: FAMOTIDINE 20 MG INJ IV SCH ×2 (09:17→21:17)
[2017-04-07 09:18] LABS: CALCIUM 8.3 mg/dl (8.4-10.2); CREATININE 0.76 mg/dl (0.61-1.24)
--- NOTE | 2017-04-07 09:38 | PN ---
Date/Time of Note Date/Time of Note DATE: 04/07/17 TIME: 09:33 Assessment/Plan VTE Prophylaxis VTE Prophylaxis Intervention: SCD's Lines/Catheters IV [facility] Peripheral IV Urinary Cath still in place: Yes Reason Cath still needed: other (indicate) Assessment/Plan Chief Complaint/Hosp Course 1. Mechanical fall with subdural hemorrhage on CT findings. GCS 14. Resolved in repeat CT. 04/05/2017. CT head, noncontrast. Small right anterior temporal subdural or epidural hematoma measuring 3 mm in thickness. Minimally depressed fracture of the right zygoma. 04/06/17. repeat CT with resolution of hemorrhage. -Continue Neurochecks. -F/u with NS recommendation. 2.Elevated troponin. Rule out ACS. Troponins trended down. Echo with preserved ejection fraction. -Cards on board. Not a candidate for aspirin due to recent bleed and BB secondary to bradycardia. 3. Leukocytosis, likely reactive. Resolved. 4. Dementia. -Continue home medications. DVT prophylaxis: Pharmacological agents are contraindicated at this time. SCDs. PUD prophylaxis: Pepcid. Plan: Awaiting for neurosurgery recommendation. Discharge planning once cleared from consultants. Case discussed with Dr. Briscoe Problems: Subjective 24 Hr Interval Summary Free Text/Dictation No overnight episodes. Patient has been transferred to telemetry. Now with sitter due to on and off confusion. Patient denied headache, dizziness, loss of consciousness or other discomfort at this time. Exam/Review of Systems Vital Signs Vitals Vital Signs Date Time Temp Pulse Resp B/P Pulse Ox O2 Delivery O2 Flow Rate FiO2 04/07/17 08:00 48 04/07/17 07:55 98.5 19 137/65 97 04/06/17 18:00 Room Air Intake and Output 04/06/17 04/06/17 04/07/17 15:00 23:00 07:00 Intake Total 1200 ml 425 ml 120 ml Output Total 360 ml 135 ml 650 ml Balance 840 ml 290 ml -530 ml Exam General: Awake, not in any acute distress . HEENT: Bruising on right forehead, chin area. Normocephalic, Atraumatic, No laceration or hematoma; Eyes: PEERL, Conjunctiva clear, Anicteric sclera Neck: Supple without any lymphadenopathy, nontender, no JVD, no carotid bruits, trachea midline, no thyromegaly Cardiac: S1, S2 auscultated, regular rhythm and rate, no mumurs or gallop Pulmonary: Normal respiratory effort. Chest clear to auscultation bilaterally, no adventitious breath sounds GI: Abdomen normal to inspection. Soft, non tender, non- distended, no masses, no rebound tenderness or guarding. Bowel sounds active on all four quadrants Genitourinary: Deferred Extremities: No cyanosis, clubbing, or edema. Pulses [2+] bilaterally. Full ROM on all four extremities. No focal weakness appreciated. Neurologic: Dementia +. Confused on and off. Awake and follows commands. Disoriented to time, place and situation. Skin: Chronic eschar wound on right second toe. otherwise, Clean,dry, and intact. No ecchymosis, no rashes, or lesions Results Result Diagram: 04/07/1772004/07/1721 Results 24 hrs Laboratory Tests Test 04/07/17 07:21 White Blood Count 6.3 Red Blood Count 4.06 L Hemoglobin 11.9 L Hematocrit 36.3 L Mean Corpuscular Volume 89.4 Mean Corpuscular Hemoglobin 29.3 Mean Corpuscular Hemoglobin Concent 32.8 Red Cell Distribution Width 13.7 Platelet Count 307 Mean Platelet Volume 9.0 Neutrophils % 63.5 Lymphocytes % 20.4 Monocytes % 11.5 H Eosinophils % 3.8 Basophils % 0.5 Nucleated Red Blood Cells % 0.0 Neutrophils # 4.0 Lymphocytes # 1.3 Monocytes # 0.7 Eosinophils # 0.2 Basophils # 0.0 Nucleated Red Blood Cells # 0.0 Sodium Level 141 Potassium Level 4.0 Chloride Level 105 Carbon Dioxide Level 25 Anion Gap 15 Blood Urea Nitrogen 10 Creatinine 0.76 Glucose Level 91 Calcium Level 8.3 L Troponin I 0.074 Medications Medications Current Medications Sodium Chloride (NS) 1,000 ml @ 75 mls/hr [id number] IV Last administered on 04/07t 01:58; Admin Dose 75 MLS/HR; Start 04/05/17 at 09:48 Ondansetron HCl (Zofran Inj) 4 mg Q6H PRN IV NAUSEA AND/OR VOMITING; Start at 10:00 Acetaminophen (Tylenol Liquid) 650 mg Q6H PRN PO PAIN LEVEL 1-3 OR FEVER Last administered on 04/06/17 21:38; Admin Dose 650 MG; Start 04/05/17 at 10:00 Acetaminophen (Tylenol Supp) 650 mg Q4H PRN [place] PAIN LEVEL 1-3 OR FEVER; Start 04/05/17 at 10:00 Morphine Sulfate (morphine) 2 mg Q4H PRN IV PAIN LEVEL 7-10; Start 04/05/17 at 10:00 Docusate Sodium (Colace) 100 mg Q12H PRN PO CONSTIPATION; Start 04/05/17 at 10: 00 Bisacodyl (Dulcolax) 5 mg DAILY PRN PO CONSTIPATION; Start 04/05/17 at 10:00 Famotidine (Pepcid Iv) 20 mg Q12 IV Last administered on 04/07/17 09:17; Admin Dose 20 MG; Start 04/05/17 at 21:00 Hydralazine HCl (Apresoline) 10 mg Q6H PRN IV SBP>160; Start 04/05/17 at 10:30 Atorvastatin Calcium (Lipitor) 20 mg HS PO Last administered on 04/06/17 21:38 ; Admin Dose 20 MG; Start 04/06/17 at 21:00 BRIAN CARD NP Apr 07, 2017 09:38
[2017-04-07] MEDS ORDERED: ARTIFICIAL TEARS 15 ML OPH BOTH EYES PRN (12:00)
--- NOTE | 2017-04-07 14:56 | CONS ---
Date/Time of Note Date/Time of Note DATE: 04/07/17 TIME: 14:54 Assessment/Plan Assessment/Plan Additional Assessment/Plan Status post mechanical fall with head trauma Elevated troponin Preserved ejection fraction Psychiatric disorder - Patient continues to deny chest pain or shortness of breath. No aspirin secondary to fall, no beta-veronica secondary to bradycardia. Statin therapy if no contraindication. Consultation Date/Type/Reason Admit Date/Time Apr 05, 2017 at 08:17 Type of Consultation: cv 24 HR Interval Summary Free Text/Dictation Denies shortness of breath or chest pain Exam/Review of Systems Vital Signs Vitals Vital Signs Date Time Temp Pulse Resp B/P Pulse Ox O2 Delivery O2 Flow Rate FiO2 04/07/17 12:00 51 04/07/17 11:34 97.6 19 142/67 95 04/06/17 18:00 Room Air Intake and Output 04/06/17 04/06/17 04/07/17 15:00 23:00 07:00 Intake Total 1200 ml 425 ml 120 ml Output Total 360 ml 135 ml 650 ml Balance 840 ml 290 ml -530 ml Exam Awake, no apparent distress Respiratory: other (Coarse breath sounds bilaterally, no wheezing) Cardiovascular: other (S1-S2 heard), regular rate and rhythm Gastrointestinal: bowel sounds, non-tender, soft Extremities: edema (Trace) Results Result Diagram: 04/07/1772004/07/17 0721 Results 24 hrs Laboratory Tests Test 04/07/17 07:21 White Blood Count 6.3 Red Blood Count 4.06 L Hemoglobin 11.9 L Hematocrit 36.3 L Mean Corpuscular Volume 89.4 Mean Corpuscular Hemoglobin 29.3 Mean Corpuscular Hemoglobin Concent 32.8 Red Cell Distribution Width 13.7 Platelet Count 307 Mean Platelet Volume 9.0 Neutrophils % 63.5 Lymphocytes % 20.4 Monocytes % 11.5 H Eosinophils % 3.8 Basophils % 0.5 Nucleated Red Blood Cells % 0.0 Neutrophils # 4.0 Lymphocytes # 1.3 Monocytes # 0.7 Eosinophils # 0.2 Basophils # 0.0 Nucleated Red Blood Cells # 0.0 Sodium Level 141 Potassium Level 4.0 Chloride Level 105 Carbon Dioxide Level 25 Anion Gap 15 Blood Urea Nitrogen 10 Creatinine 0.76 Glucose Level 91 Calcium Level 8.3 L Troponin I 0.074 Medications Medications Current Medications Sodium Chloride (NS) 1,000 ml @ 75 mls/hr [id number] IV Last administered on 04/07 01:58; Admin Dose 75 MLS/HR; Start 04/05/17 at 09:48 Ondansetron HCl (Zofran Inj) 4 mg Q6H PRN IV NAUSEA AND/OR VOMITING; Start at 10:00 Acetaminophen (Tylenol Liquid) 650 mg Q6H PRN PO PAIN LEVEL 1-3 OR FEVER Last administered on 04/06/17 21:38; Admin Dose 650 MG; Start 04/05/17 at 10:00 Acetaminophen (Tylenol Supp) 650 mg Q4H PRN [place] PAIN LEVEL 1-3 OR FEVER; Start 04/05/17 at 10:00 Morphine Sulfate (morphine) 2 mg Q4H PRN IV PAIN LEVEL 7-10; Start 04/05/17 at 10:00 Docusate Sodium (Colace) 100 mg Q12H PRN PO CONSTIPATION; Start 04/05/17 at 10: 00 Bisacodyl (Dulcolax) 5 mg DAILY PRN PO CONSTIPATION; Start 04/05/17 at 10:00 Famotidine (Pepcid Iv) 20 mg Q12 IV Last administered on 04/07/17 09:17; Admin Dose 20 MG; Start 04/05/17 at 21:00 Hydralazine HCl (Apresoline) 10 mg Q6H PRN IV SBP>160; Start 04/05/17 at 10:30 Atorvastatin Calcium (Lipitor) 20 mg HS PO Last administered on 04/06/17 21:38 ; Admin Dose 20 MG; Start 04/06/17 at 21:00 Eye Lubricant (Artificial Tears Oph) 2 drop QID PRN BOTH EYES ITCHING; Start at 12:00 Jax Chauhan DO Apr 07, 2017 14:55
[2017-04-07] MEDS: ATORVASTATIN 20 MG TAB PO SCH (21:17)
[2017-04-08] VITALS (12 sets, daily range): BP systolic 135–148; BP diastolic 62–81; PULSE 52–78; RESP 16–19
[2017-04-08] MEDS: SOD CHLORIDE 0.9% 1,000 ML IV SCH ×2 (04:20→09:28)
[2017-04-08] MEDS: FAMOTIDINE 20 MG INJ IV SCH ×2 (09:25→21:01)
--- NOTE | 2017-04-08 10:57 | PN ---
Date/Time of Note Date/Time of Note DATE: 04/08/17 TIME: 10:56 Assessment/Plan VTE Prophylaxis VTE Prophylaxis Intervention: SCD's Lines/Catheters IV Catheter Type (from Nrsg): Peripheral IV Urinary Cath still in place: Yes Reason Cath still needed: urinary retention Assessment/Plan Assessment/Plan Status post mechanical fall with head trauma Elevated troponin Preserved ejection fraction Psychiatric disorder - Patient continues to deny chest pain or shortness of breath. No aspirin secondary to fall, no beta-veronica secondary to bradycardia. Statin therapy if no contraindication. Subjective 24 Hr Interval Summary Free Text/Dictation The patient with no cahnge Exam/Review of Systems Vital Signs Vitals Vital Signs Date Time Temp Pulse Resp B/P Pulse Ox O2 Delivery O2 Flow Rate FiO2 04/08/17 08:15 52 04/08/17 07:46 98.3 19 145/71 95 04/08/17 04:00 Room Air Intake and Output 04/07/17 04/07/17 04/08/17 15:00 23:00 07:00 Intake Total 1305 ml 120 ml Output Total 400 ml 900 ml Balance 905 ml -780 ml Results Result Diagram: 04/07/1772004/07/17720 Medications Medications Current Medications Ondansetron HCl (Zofran Inj) 4 mg Q6H PRN IV NAUSEA AND/OR VOMITING; Start at 10:00 Acetaminophen (Tylenol Liquid) 650 mg Q6H PRN PO PAIN LEVEL 1-3 OR FEVER Last administered on 04/06/17 21:38; Admin Dose 650 MG; Start 04/05/17 at 10:00 Acetaminophen (Tylenol Supp) 650 mg Q4H PRN [place] PAIN LEVEL 1-3 OR FEVER; Start 04/05/17 at 10:00 Morphine Sulfate (morphine) 2 mg Q4H PRN IV PAIN LEVEL 7-10; Start 04/05/17 at 10:00 Docusate Sodium (Colace) 100 mg Q12H PRN PO CONSTIPATION; Start 04/05/17 at 10: 00 Bisacodyl (Dulcolax) 5 mg DAILY PRN PO CONSTIPATION; Start 04/05/17 at 10:00 Famotidine (Pepcid Iv) 20 mg Q12 IV Last administered on 04/08/17 09:25; Admin Dose 20 MG; Start 04/05/17 at 21:00 Hydralazine HCl (Apresoline) 10 mg Q6H PRN IV SBP>160; Start 04/05/17 at 10:30 Atorvastatin Calcium (Lipitor) 20 mg HS PO Last administered on 04/07/17t 21:17 ; Admin Dose 20 MG; Start 04/06/17 at 21:00 Eye Lubricant (Artificial Tears Oph) 2 drop QID PRN BOTH EYES ITCHING; Start at 12:00 TATIANNA JOHNS MD Apr 08, 2017 10:57
[2017-04-08] MEDS ORDERED: ALPRAZOLAM 0.25 MG TAB PO PRN (21:00)
[2017-04-08] MEDS: ATORVASTATIN 20 MG TAB PO SCH (21:01)
[2017-04-09] VITALS (14 sets, daily range): BP systolic 117–161; BP diastolic 65–96; PULSE 51–74; RESP 17–19
[2017-04-09] MEDS ORDERED: HALOPERIDOL 5 MG INJ IM ONE ×3 (02:30→04:00)
[2017-04-09] MEDS ORDERED: LORAZEPAM 2 MG INJ IV ONE (04:00)
[2017-04-09] MEDS: FAMOTIDINE 20 MG INJ IV SCH ×2 (12:15→21:14)
--- NOTE | 2017-04-09 15:37 | PN ---
Date/Time of Note Date/Time of Note DATE: 04/09/17 TIME: 15:35 Assessment/Plan VTE Prophylaxis VTE Prophylaxis Intervention: LMWH Lines/Catheters IV Catheter Type (from Nrs): Peripheral IV Urinary Cath still in place: No Assessment/Plan Chief Complaint/Hosp Course 71 yo male wt h/o dementia who had likely traumatic fall leading to small SDH (nonoperative) as well as type II NSTEMI 1. Mechanical fall with subdural hemorrhage on CT findings. GCS 14. Resolved in repeat CT. - No intervention indication 2.Type II PR from trauma, TTE normal 3. Leukocytosis, likely reactive. Resolved. 4. Dementia. -Continue home medications. DVT prophylaxis: Pharmacological agents are contraindicated at this time. SCDs. Plan to transfer back to facility Problems: Subjective 24 Hr Interval Summary Free Text/Dictation Patient stable and comfortable Clearly w dementia, pleasant Exam/Review of Systems Vital Signs Vitals Vital Signs Date Time Temp Pulse Resp B/P Pulse Ox O2 Delivery O2 Flow Rate FiO2 04/09/17 12:47 54 04/09/17 12:23 98.7 18 132/72 98 04/09/17 06:54 Room Air Intake and Output 04/08/17 04/08/17 04/09/17 15:00 23:00 07:00 Intake Total 780 ml 550 ml Output Total 2200 ml Balance -1420 ml 550 ml Results Result Diagram: 04/07/1772004/07/17720 Medications Medications Current Medications Ondansetron HCl (Zofran Inj) 4 mg Q6H PRN IV NAUSEA AND/OR VOMITING; Start at 10:00 Acetaminophen (Tylenol Liquid) 650 mg Q6H PRN PO PAIN LEVEL 1-3 OR FEVER Last administered on 04/06/17 21:38; Admin Dose 650 MG; Start 04/05/17 at 10:00 Acetaminophen (Tylenol Supp) 650 mg Q4H PRN [place] PAIN LEVEL 1-3 OR FEVER; Start 04/05/17 at 10:00 Morphine Sulfate (morphine) 2 mg Q4H PRN IV PAIN LEVEL 7-10 Last administered on 04/08/17 21:02; Admin Dose 2 MG; Start 04/05/17 at 10:00 Docusate Sodium (Colace) 100 mg Q12H PRN PO CONSTIPATION; Start 04/05/17 at 10: 00 Bisacodyl (Dulcolax) 5 mg DAILY PRN PO CONSTIPATION; Start 04/05/17 at 10:00 Famotidine (Pepcid Iv) 20 mg Q12 IV Last administered on 04/09/17 12:15; Admin Dose 20 MG; Start 04/05/17 at 21:00 Hydralazine HCl (Apresoline) 10 mg Q6H PRN IV SBP>160; Start 04/05/17 at 10:30 Atorvastatin Calcium (Lipitor) 20 mg HS PO Last administered on 04/08/17 21:01 ; Admin Dose 20 MG; Start 04/06/17 at 21:00 Eye Lubricant (Artificial Tears Oph) 2 drop QID PRN BOTH EYES ITCHING; Start at 12:00 CHANDNI RIVERA MD Apr 09, 2017 15:37
[2017-04-09] MEDS: ATORVASTATIN 20 MG TAB PO SCH (21:14)
[2017-04-10] VITALS (11 sets, daily range): BP systolic 112–133; BP diastolic 62–68; PULSE 56–81; RESP 16–20
[2017-04-10] MEDS: FAMOTIDINE 20 MG INJ IV SCH (10:18)
[2017-04-10] MEDS ORDERED: morphine 4 MG/ML VIAL IV PRN (14:30)
--- NOTE | 2017-04-10 15:00 | CONS ---
Date/Time of Note Date/Time of Note DATE: 04/10/17 TIME: 14:59 Assessment/Plan Assessment/Plan Additional Assessment/Plan Status post mechanical fall with head trauma Elevated troponin Preserved ejection fraction Psychiatric disorder - Patient continues to deny chest pain or shortness of breath. No aspirin secondary to fall, no beta-veronica secondary to bradycardia. Continue statin therapy if no contraindication. DC planning Consultation Date/Type/Reason Admit Date/Time Apr 05, 2017 at 08:17 Type of Consultation: cv 24 HR Interval Summary Free Text/Dictation Denies chest pain, shortness of breath Exam/Review of Systems Vital Signs Vitals Vital Signs Date Time Temp Pulse Resp B/P Pulse Ox O2 Delivery O2 Flow Rate FiO2 04/10/17 12:05 63 04/10/17 11:39 98.6 18 123/66 95 04/10/17 02:18 Room Air Intake and Output 04/09/17 04/09/17 04/10/17 15:00 23:00 07:00 Intake Total 400 ml 120 ml 420 ml Output Total 1750 ml 1600 ml 600 ml Balance -1350 ml -1480 ml -180 ml Exam Awake, follows commands, confused Head: normocephalic Respiratory: other (Coarse breath sounds bilaterally, no wheezing) Cardiovascular: other (S1-S2 heard), regular rate and rhythm Gastrointestinal: bowel sounds, non-tender, soft Extremities: edema (Trace) Results Result Diagram: 04/07/1772004/07/17720 Medications Medications Current Medications Ondansetron HCl (Zofran Inj) 4 mg Q6H PRN IV NAUSEA AND/OR VOMITING; Start at 10:00 Acetaminophen (Tylenol Liquid) 650 mg Q6H PRN PO PAIN LEVEL 1-3 OR FEVER Last administered on 04/06/17t 21:38; Admin Dose 650 MG; Start 04/05/17 at 10:00 Acetaminophen (Tylenol Supp) 650 mg Q4H PRN [place] PAIN LEVEL 1-3 OR FEVER; Start 04/05/17 at 10:00 Docusate Sodium (Colace) 100 mg Q12H PRN PO CONSTIPATION; Start 04/05/17 at 10: 00 Bisacodyl (Dulcolax) 5 mg DAILY PRN PO CONSTIPATION; Start 04/05/17 at 10:00 Famotidine (Pepcid Iv) 20 mg Q12 IV Last administered on 04/10/17 10:18; Admin Dose 20 MG; Start 04/05/17 at 21:00 Hydralazine HCl (Apresoline) 10 mg Q6H PRN IV SBP>160; Start 04/05/17 at 10:30 Atorvastatin Calcium (Lipitor) 20 mg HS PO Last administered on 04/09/17 21:14 ; Admin Dose 20 MG; Start 04/06/17 at 21:00 Eye Lubricant (Artificial Tears Oph) 2 drop QID PRN BOTH EYES ITCHING; Start at 12:00 Morphine Sulfate (morphine) 2 mg Q4H PRN IV PAIN LEVEL 7-10; Start 04/10/17 at 14:30 Jax Chauhan DO Apr 10, 2017 15:00
--- NOTE | 2017-04-10 15:10 | PN ---
Date/Time of Note Date/Time of Note DATE: 04/10/17 TIME: 15:09 Assessment/Plan VTE Prophylaxis VTE Prophylaxis Intervention: SCD's Lines/Catheters IV Catheter Type (from [facility]): [place] Assessment/Plan Chief Complaint/Hosp Course 1. Mechanical fall with subdural hemorrhage on CT findings. GCS 14. Resolved in repeat CT. - No intervention indication 2.Type II CA from trauma, TTE normal 3. Leukocytosis, likely reactive. Resolved. 4. Dementia. -Continue home medications. DVT prophylaxis: Pharmacological agents are contraindicated at this time. SCDs. Plan to transfer back to facility Problems: Subjective 24 Hr Interval Summary Constitutional: disoriented Exam/Review of Systems Vital Signs Vitals Vital Signs Date Time Temp Pulse Resp B/P Pulse Ox O2 Delivery O2 Flow Rate FiO2 04/10/17 12:05 63 04/10/17 11:39 98.6 18 123/66 95 04/10/17 02:18 Room Air Intake and Output 04/09/17 04/09/17 04/10/17 15:00 23:00 07:00 Intake Total 400 ml 120 ml 420 ml Output Total 1750 ml 1600 ml 600 ml Balance -1350 ml -1480 ml -180 ml Exam Psych: confusion Respiratory: clear to auscultation Cardiovascular: regular rate and rhythm Gastrointestinal: soft, No distended Musculoskeletal: nl extremities to inspection Results Result Diagram: 04/07/1772004/07/17720 Medications Medications Current Medications Ondansetron HCl (Zofran Inj) 4 mg Q6H PRN IV NAUSEA AND/OR VOMITING; Start at 10:00 Acetaminophen (Tylenol Liquid) 650 mg Q6H PRN PO PAIN LEVEL 1-3 OR FEVER Last administered on 04/06/17t 21:38; Admin Dose 650 MG; Start 04/05/17 at 10:00 Acetaminophen (Tylenol Supp) 650 mg Q4H PRN [place] PAIN LEVEL 1-3 OR FEVER; Start 04/05/17 at 10:00 Docusate Sodium (Colace) 100 mg Q12H PRN PO CONSTIPATION; Start 04/05/17 at 10: 00 Bisacodyl (Dulcolax) 5 mg DAILY PRN PO CONSTIPATION; Start 04/05/17 at 10:00 Famotidine (Pepcid Iv) 20 mg Q12 IV Last administered on 04/10/17 10:18; Admin Dose 20 MG; Start 04/05/17 at 21:00 Hydralazine HCl (Apresoline) 10 mg Q6H PRN IV SBP>160; Start 04/05/17 at 10:30 Atorvastatin Calcium (Lipitor) 20 mg HS PO Last administered on 04/09/17 21:14 ; Admin Dose 20 MG; Start 04/06/17 at 21:00 Eye Lubricant (Artificial Tears Oph) 2 drop QID PRN BOTH EYES ITCHING; Start at 12:00 Morphine Sulfate (morphine) 2 mg Q4H PRN IV PAIN LEVEL 7-10; Start 04/10/17 at 14:30 GERARDO SHARMA Apr 10, 2017 15:10
--- NOTE | 2017-04-10 16:46 | DS ---
Date/Time of Note Date/Time of Note DATE: 04/10/17 TIME: 16:42 Discharge Summary Admission/Discharge Info Admit Date/Time Apr 05, 2017 at 08:17 Discharge Date/Time April 10, 2017 Discharge Diagnosis . Mechanical fall with subdural hemorrhage on CT findings- Resolved in repeat CT. - No intervention indication 2.Type II SD from trauma, TTE normal 3. Leukocytosis, likely reactive. Resolved. 4. Dementia. -Continue home medications. Patient Condition: Good Hospital Course Patient is a 71-year-old male with a past medical history of dementia, appendectomy, who was brought to the emergency room from assisted living facility after fell and hit his head while ambulating with walker. Patient had a CT brain without contrast which showed small right anterior temporal subdural or epidural hematoma measuring 3 mm in thickness, Minimally depressed fracture of the right zygoma. A neurosurgery consult was called from the emergency room and a clinical decision was made to admit in the ICU for further evaluation. Patient had a follow-up CT head which showed resolution of the bleed and there was no indication for an intervention. Patient did have mild elevation of troponins and was seen by cardiology, plan is to trend down and patient required no further cardiac intervention. Patient has baseline dementia appeared that he was back to his baseline of the day of discharge. On the day of discharge patient's vitals, labs and physical exam are stable. Home Meds Reported Medications Tiotropium [place]* (Spiriva*) 18 Mcg Cap.w.dev, 1 CAP INHALATION DAILY, #30 CAP 04/05/17 Docusate Sodium* (Colace*) 100 Mg Capsule, 100 MG PO BID, #60 CAP 04/05/17 Quetiapine Fumarate* (Seroquel*) 50 Mg Tablet, 50 MG PO QAM, TAB 04/05/17 Quetiapine Fumarate* (Seroquel*) 100 Mg Tablet, 100 MG PO QHS, #30 TAB 04/05/17 Ferrous Sulfate* (Ferrous Sulfate*) 325 Mg Tabec, 325 MG PO MONWEDFRI, TAB 04/05/17 Haloperidol* (Haloperidol*) 10 Mg Tablet, 5 MG PO Q6 Y for AGITATION/ANXIETY, TAB 04/05/17 Carbamazepine* (Carbamazepine*) 100 Mg Tab.chew, 300 MG PO BID, #60 TAB.CHEW 04/05/17 Follow-up Plan Follow-up with PCP Primary Care Provider Not On Staff Doctor Time spent on discharge: > 30 minutes GERARDO SHARMA Apr 10, 2017 16:46
== END 2017-04-10 19:07 | disposition home or self-care (01) | DRG 85 ==
LOC: E/R 05:58 → ICU 08:17 → MS4 04-06 19:17
PROVIDERS: ADMIT Family Medicine; ATTEND Family Medicine
DX: S06.5X0A Traumatic subdural hemorrhage without loss of consciousness, initial encounter (principal); I21.4 Non-ST elevation (NSTEMI) myocardial infarction; F03.90 Unspecified dementia, unspecified severity, without behavioral disturbance, psychotic disturbance, mood disturbance, and anxiety; S02.40EA Zygomatic fracture, right side, initial encounter for closed fracture; W01.0XXA Fall on same level from slipping, tripping and stumbling without subsequent striking against object, initial encounter; Y93.01 Activity, walking, marching and hiking; R40.2412 Glasgow coma scale score 13-15, at arrival to emergency department; J44.9 Chronic obstructive pulmonary disease, unspecified; R00.1 Bradycardia, unspecified; Y92.099 Unspecified place in other non-institutional residence as the place of occurrence of the external cause; Y99.8 Other external cause status; Z87.891 Personal history of nicotine dependence
CPT/HCPCS: 36415; 36600; 70450; 71010; 72125; 73080; 73510; 80048; 80053; 80061; 81001; 82550; 82553; 82803; 82962; 83036; 83735; 84100; 84443; 84484; 84560; 85025; 85610; 85730; 87081; 87086; 93005; 93306; J1630; J1953; J2270; J7030

== ENCOUNTER 2017-06-04 12:34 | Emergency (ER) | payer OTHER ==
[~2017-06-04] VITALS: Ht 177.8 cm; Wt 81.8 kg
[~2017-06-04 12:34] MED LIST: CARB100T2 PO; DOCU-144 PO; FER325 PO; HALO10TA PO; QUET100T PO; QUET50TA16 PO; TIOT18CA INHALATION
[2017-06-04] MEDS ORDERED: ONDANSETRON 4 MG INJ IV STA (12:36)
[2017-06-04 12:41] VITALS: Ht 177.8 cm; Wt 81.8 kg
[2017-06-04 13:20] LABS: ABNORMAL IP MESSAGE 1; BASOPHILS % 0.2 % (0.0-2.0); EOSINOPHILS # 0.1 10^3/ul (0.0-0.5); EOSINOPHILS % 0.5 % (0.0-7.0); HEMATOCRIT 42.4 % (42.0-52.0); HEMOGLOBIN 14.2 g/dl (14.0-18.0); LYMPHOCYTES # 0.4 10^3/ul (0.8-2.9); MEAN CORPUSCULAR HGB CONC 33.5 g/dl (32.0-37.0); MEAN CORPUSCULAR VOLUME 89.5 fl (82.0-101.0); MEAN PLATELET VOLUME 9.1 fl (7.4-10.4); MONOCYTE # 1.4 10^3/ul (0.3-0.9); MONOCYTES % 13.2 % (0.0-11.0); NEUTROPHIL # 8.8 10^3/ul (1.6-7.5); NEUTROPHILS % 81.6 % (39.0-77.0); PLATELET COUNT 365 10^3/UL (140-415); POSITIVE DIFF @See below; RED BLOOD COUNT 4.74 10^6/ul (4.70-6.10); RED CELL DISTRIBUTION WIDTH 12.7 % (11.5-14.5); WHITE BLOOD COUNT 10.7 10^3/ul (4.8-10.8)
[2017-06-04 13:36] LABS: INR 1.04; PROTIME 13.6 Sec (12.2-14.2); PT RATIO 1.1
[2017-06-04 13:37] LABS: ANION GAP 14 (8-16); BLOOD UREA NITROGEN 22 mg/dl (7-20); CALCIUM 9.5 mg/dl (8.4-10.2); CARBON DIOXIDE 31 mmol/L (21-31); CHLORIDE 94 mmol/L (97-110); CREATININE 1.02 mg/dl (0.61-1.24); GLUCOSE 120 mg/dl (70-220); PARTIAL THROMBOPLASTIN TIME 30.2 Sec (25.0-35.0); SODIUM 135 mmol/L (135-144)
[2017-06-04 13:49] LABS: TROPONIN-I < 0.012 ng/ml (0.00-0.12)
--- NOTE | 2017-06-04 14:03 | RADRPT ---
PROCEDURE: XR Chest. CLINICAL INDICATION: Shortness of breath. TECHNIQUE: Single frontal view. COMPARISON: None. FINDINGS: There is mild left basilar atelectasis. The lungs are otherwise clear. The heart size is normal. There is no pleural effusion. There is no pneumothorax. IMPRESSION: 1. Mild left basilar atelectasis. 2. Otherwise normal chest radiograph. RPTAT: QQ .Ramu Alfonso MD, MD Date Time Electronically viewed and signed by .Ramu Alfonso MD, on 06/04/2017 14:03 .R/
--- NOTE | 2017-06-04 14:07 | RADRPT ---
PROCEDURE: CT Brain without contrast. CLINICAL INDICATION: Weakness. TECHNIQUE: A CT of the brain without contrast was performed utilizing axial sections from the skul l base through the vertex. The patient was scanned without intravenous contrast enhancement. Sag[place] l and coronal reformatted images were obtained using the data from the axial images. Total exam DLP is 630.20 mGy-cm. CTDIvol is 44.46 mGy. One or more of the following dose reduction techniques we re used: Automated exposure control, adjustment of the mA and/or kV according to patient size, use o f iterative reconstruction technique. COMPARISON: CT scan of the brain dated 04/05/2017. FINDINGS: There is normal reynolds-white matter differentiation. There is enlargement of the ventricles and subarachnoid spaces consistent with atrophy. There is decreased attenuation of the periventricular white matter consistent with microangiopathic ischemic change. There is no intracranial hemorrhage or space-occupying lesion. There are vascular calcifications consistent with atherosclerosis. There is no skull fracture or lytic lesion. IMPRESSION: 1. Atrophy. 2. Microangiopathic ischemic change. 3. Atherosclerosis. 4. No intracranial hemorrhage. 5. Otherwise unremarkable noncontrast CT scan of the brain. 6. No change from 04/05/2017. RPTAT: QQ .Ramu Alfonso MD, MD Date Time Electronically viewed and signed by .Ramu Alfonso MD, on 06/04/2017 14:07 .R/
[2017-06-04 14:27] LABS: ADD UMIC YES; UR ASCORBIC ACID NEGATIVE (NEGATIVE); UR BILIRUBIN (Dip) NEGATIVE (NEGATIVE); UR BLOOD (Dip) NEGATIVE (NEGATIVE); UR CLARITY SLIGHTLY CLOUDY (CLEAR); UR COLOR AMBER (YELLOW); UR GLUCOSE (Dip) NEGATIVE (NEGATIVE); UR KETONES (Dip) NEGATIVE (NEGATIVE); UR LEUKOCYTE ESTERASE (Dip) NEGATIVE Leu/ul (NEGATIVE); UR MUCUS FEW /HPF (NONE SEEN); UR NITRITE (Dip) NEGATIVE (NEGATIVE); UR RBC 1 /HPF (0-5); UR SPECIFIC GRAVITY (Dip) 1.025 (1.003-1.030); UR TOTAL PROTEIN (Dip) 1+ mg/dl (NEGATIVE); UR UROBILINOGEN (Dip) 1+ mg/dL (NEGATIVE)
[2017-06-04 14:40] LABS: BARBITURATES Negative (NEGATIVE); BENZODIAZEPINES Negative (NEGATIVE); CANNABINOIDS Negative (NEGATIVE); COCAINE Negative (NEGATIVE); OPIATES Negative (NEGATIVE)
--- NOTE | 2017-06-04 14:42 | ERD ---
ER Documentation Chief Complaint Date/Time DATE: 06/04/17 TIME: 14:42 Chief Complaint CAME IN VIA EMS DUE TO SUDDEN ONSET OF GENERALIZED WEAKNESS HPI Patient is a 71-year-old male with dementia who presents with weakness. Please note the history and physical exam is limited secondary to the patient's dementia at baseline. The patient was brought in by ambulance. He had nausea and vomiting. He had generalized weakness however when he asked the patient he says "my nose is weak". He came from a nursing facility. Upon review of old medical records the patient one previous visit to the ER in March 2017 for a subdural hemorrhage. I cannot obtain history otherwise. ROS All systems reviewed and are negative except as per history of present illness. Medications Home Meds Reported Medications Tiotropium [place]* (Spiriva*) 18 Mcg Cap.w.dev, 1 CAP INHALATION DAILY, #30 CAP 04/05/17 Docusate Sodium* (Colace*) 100 Mg Capsule, 100 MG PO BID, #60 CAP 04/05/17 Quetiapine Fumarate* (Seroquel*) 50 Mg Tablet, 50 MG PO QAM, TAB 04/05/17 Quetiapine Fumarate* (Seroquel*) 100 Mg Tablet, 100 MG PO QHS, #30 TAB 04/05/17 Ferrous Sulfate* (Ferrous Sulfate*) 325 Mg Tabec, 325 MG PO MONWEDFRI, TAB 04/05/17 Haloperidol* (Haloperidol*) 10 Mg Tablet, 5 MG PO Q6 Y for AGITATION/ANXIETY, TAB 04/05/17 Carbamazepine* (Carbamazepine*) 100 Mg Tab.chew, 300 MG PO BID, #60 TAB.CHEW 04/05/17 Allergies Allergies: Coded Allergies: No Known Allergy (Unverified , 04/05/17) PMhx/Soc History of Surgery: Yes (APPENDECTOMY WHEN 8 YRS OLD) Anesthesia Reaction: No Hx Neurological Disorder: Yes (SUBDURAL HEMATOMA) Hx Respiratory Disorders: No Hx Cardiac Disorders: No Hx Psychiatric Problems: Yes (DEMENTIA) Hx Miscellaneous Medical Probl: No Hx Alcohol Use: Yes (YEARS AGO) Hx Substance Use: No Hx Tobacco Use: Yes (QUIT YEARS AGO) Smoking Status: Former smoker FmHx Unable to obtain Physical Exam Vitals Vital Signs Date Time Temp Pulse Resp B/P Pulse Ox O2 Delivery O2 Flow Rate FiO2 06/04/17 15:05 72 18 127/73 100 Room Air 2.0 Nasal Cannula 06/04/17 13:32 Nasal Cannula 2 06/04/17 12:41 97.6 84 16 108/66 98 Physical Exam Const: No acute distress Head: Atraumatic Eyes: Normal Conjunctiva ENT: Normal External Ears, Nose and Mouth. Neck: Full range of motion..~ No meningismus. Resp: Clear to auscultation bilaterally Cardio: Regular rate and rhythm, no murmurs Abd: Soft, non tender, non distended. Normal bowel sounds Skin: No petechiae or rashes Back: No midline or flank tenderness Ext: No cyanosis, or edema Neur: Awake but no one-sided weakness, patient has dementia at baseline Psych: Normal Mood and Affect Result Diagram: 06/04/17 1305 06/04/17 1305 Results 24 hrs Laboratory Tests Test 06/04/17 13:05 06/04/17 13:50 White Blood Count 10.710^3/ul Red Blood Count 4.7410^6/ul Hemoglobin 14.2g/dl Hematocrit 42.4% Mean Corpuscular Volume 89.5fl Mean Corpuscular Hemoglobin 30.0pg Mean Corpuscular Hemoglobin Concent 33.5g/dl Red Cell Distribution Width 12.7% Platelet Count 06184^3/UL Mean Platelet Volume 9.1fl Neutrophils % 81.6% Lymphocytes % 4.0% Monocytes % 13.2% Eosinophils % 0.5% Basophils % 0.2% Nucleated Red Blood Cells % 0.0/100WBC Neutrophils # 8.810^3/ul Lymphocytes # 0.410^3/ul Monocytes # 1.410^3/ul Eosinophils # 0.110^3/ul Basophils # 0.010^3/ul Nucleated Red Blood Cells # 0.010^3/ul Prothrombin Time 13.6Sec Prothrombin Time Ratio 1.1 INR International Normalized Ratio 1.04 Activated Partial Thromboplast Time 30.2Sec Sodium Level 135mmol/L Potassium Level 4.0mmol/L Chloride Level 94mmol/L Carbon Dioxide Level 31mmol/L Anion Gap 14 Blood Urea Nitrogen 22mg/dl Creatinine 1.02mg/dl Glucose Level 120mg/dl Hemoglobin A1c 5.3% Calcium Level 9.5mg/dl Troponin I < 0.012ng/ml Urine Color EZ Urine Clarity SLIGHTLY CLOUDY Urine pH 5.0 Urine Specific [place] 1.025 Urine Ketones NEGATIVEmg/dL Urine Nitrite NEGATIVEmg/dL Urine Bilirubin NEGATIVEmg/dL Urine Urobilinogen 1+mg/dL Urine Leukocyte Esterase NEGATIVELeu/ul Urine Microscopic RBC 1/HPF Urine Microscopic WBC 1/HPF Urine Mucus FEW/HPF Urine Hemoglobin NEGATIVEmg/dL Urine Glucose NEGATIVEmg/dL Urine Total Protein 1+mg/dl Urine Opiates Screen Negative Urine Barbiturates Negative Urine Amphetamines Screen Negative Urine Benzodiazepines Screen Negative Urine Cocaine Screen Negative Urine Cannabinoids Negative Current Medications Medications (Trade) Dose Ordered Sig/Janis Route PRN Reason Start Time Stop Time Status Last Admin Dose Admin Ondansetron HCl (Zofran Inj) 4 mg ONCE STAT IV 06/04/17 12:36 06/04/17 12:37 DC 06/04/17 13:20 Procedures/MDM EKG read by me: Rate/Rhythm: Regular rate and rhythm at a rate of 73 Intervals: Normal Impression: No evidence of ischemia or arrhythmia CT brain shows no sign of hemorrhage or mass per radiology. Patient is a 71-year-old male who presents with complaints of vomiting and weakness. CT brain shows no bleed. EKG shows no signs of ischemia. Laboratory studies are basically normal. At this point I see no signs of sepsis or bacterial infection. The patient will be discharged and can follow- up with his primary doctor within 24-48 hours. He can return for any worsening symptoms. Departure Diagnosis: Primary Impression: Acute weakness Condition: Fair Patient Instructions: Weakness, Unk Cause Referrals: Your doctor Additional Instructions: Call your primary care doctor TOMORROW for an appointment during the next 1-2 days.See the doctor sooner or return here if your condition worsens before your appointment time. CORKY HAGER MD Jun 04, 2017 14:42
[2017-06-04 22:08] VITALS: BP 125/64; PULSE 74; RESP 18
== END 2017-06-04 22:17 | disposition home or self-care (01) ==
LOC: E/R 12:34
DX: R53.1 Weakness (principal); R40.2242 Coma scale, best verbal response, confused conversation, at arrival to emergency department; R40.2142 Coma scale, eyes open, spontaneous, at arrival to emergency department; R40.2362 Coma scale, best motor response, obeys commands, at arrival to emergency department; R06.02 Shortness of breath; R51 Headache; Z87.891 Personal history of nicotine dependence
CPT/HCPCS: 36415; 70450; 71010; 80048; 80307; 81001; 83036; 84484; 85025; 85610; 85730; 93005; 96374; 99285; J2405